=== PATIENT | female | born 1965 | race Caucasian/White ===

== ENCOUNTER 2019-08-06 14:17 | Inpatient (IN) | payer OTHER ==
[~2019-08-06] VITALS: Ht 165.1 cm; Wt 146.3 kg
[~2019-08-06 14:17] MED LIST: Acetaminophen PO; ENOX40DI2 SC; OXYC-481 PO; OXYC15TA PO; ZOLP5TAB PO
[2019-08-06] MEDS ORDERED: KETOROLAC 15 MG INJ IV STA (16:39)
[2019-08-06] MEDS ORDERED: LIDOCAINE 1% (MPF) 30 ML INJ INJ ONE (17:30)
[2019-08-06] MEDS ORDERED: BUPIVACAINE 0.5% (MPF) 10 ML VIAL INJ ONE (17:30)
[2019-08-06] MEDS ORDERED: HYDROmorphONE 2 MG/ML SYG IV STA (18:57)
[2019-08-06] MEDS ORDERED: ONDANSETRON 4 MG INJ IV PRN ×2 (19:30→23:00)
[2019-08-06] MEDS ORDERED: ACETAMINOPHEN 325 MG TAB PO PRN (19:30)
[2019-08-06 21:59] VITALS: BP 136/76; PULSE 80; RESP 20
[2019-08-06] MEDS ORDERED: ZOLPIDEM 5 MG TAB PO PRN (23:00)
[2019-08-06 23:51] VITALS: Ht 165.1 cm; Wt 146.3 kg
[2019-08-07] MEDS: morphine 4 MG/ML VIAL IV PRN ×2 (00:08→05:36)
[2019-08-07] MEDS: DEXTROSE 5%-0.45% NACL 1,000 ML IV SCH ×3 (00:15→21:34)
[2019-08-07 02:01] VITALS: BP 130/74; PULSE 97; RESP 20
[2019-08-07 08:29] VITALS: BP 186/85; PULSE 100; RESP 20
[2019-08-07] MEDS ORDERED: oxyCODONE 5 MG TAB PO PRN ×2 (08:30)
[2019-08-07] MEDS ORDERED: oxyCODONE 15 MG TAB PO PRN (08:30)
[2019-08-07] MEDS: HYDROmorphONE 1 MG/ML SYG IV PRN ×3 (08:46→23:46)
[2019-08-07] MEDS: ACETAMINOPHEN 500 MG TAB PO SCH ×3 (08:46→21:33)
[2019-08-07 09:15] VITALS: BP 149/68
[2019-08-07 15:02] VITALS: BP 139/81; PULSE 98; RESP 20
[2019-08-07 20:00] VITALS: BP 165/88; PULSE 92; RESP 18
[2019-08-07] MEDS ORDERED: ENOXAPARIN 40 MG/0.4 ML SYG SC ONE (20:30)
[2019-08-08] VITALS (38 sets, daily range): BP systolic 120–179; BP diastolic 52–95; PULSE 68–98; RESP 10–20
[2019-08-08] MEDS: DEXTROSE 5%-0.45% NACL 1,000 ML IV SCH ×2 (05:00→05:42)
[2019-08-08] MEDS: HYDROmorphONE 1 MG/ML SYG IV PRN ×2 (05:37→10:25)
[2019-08-08] MEDS: ACETAMINOPHEN 500 MG TAB PO SCH ×3 (08:36→22:15)
[2019-08-08] MEDS ORDERED: MIDAZOLAM 1 MG/ML 2 ML INJ ONE (14:27)
[2019-08-08] MEDS ORDERED: ROPIVACAINE 0.5 % 30 ML VIAL ONE (14:27)
[2019-08-08] MEDS ORDERED: LIDOCAINE 2% (SDV) 5 ML INJ ONE (15:07)
[2019-08-08] MEDS ORDERED: SUCCINYLCHOLINE CHLORIDE 100 MG/5 ML SYG IV ONE (15:07)
[2019-08-08] MEDS ORDERED: PROPOFOL 40 ML ONE (15:07)
[2019-08-08] MEDS ORDERED: CEFAZOLIN 1 GM INJ ONE (15:39)
[2019-08-08] MEDS ORDERED: ROCURONIUM 50 MG INJ ONE ×2 (15:50)
[2019-08-08] MEDS ORDERED: FAMOTIDINE 20 MG INJ ONE (15:51)
[2019-08-08] MEDS ORDERED: ONDANSETRON 4 MG INJ ONE (15:51)
[2019-08-08] MEDS ORDERED: DEXAMETHASONE 4 MG/ML 5 ML INJ ONE (15:51)
[2019-08-08] MEDS ORDERED: LABETALOL HCL 20MG INJ ONE (15:57)
[2019-08-08] MEDS ORDERED: POLYMYXIN/BACITRACIN 1L IRRIG ONE ×2 (16:25→18:18)
[2019-08-08] MEDS ORDERED: hydrALAzine 20 MG INJ ONE ×2 (16:56→19:45)
[2019-08-08] MEDS ORDERED: HYDROmorphONE 2 MG/ML SYG ONE (18:03)
[2019-08-08] MEDS ORDERED: DIPHENHYDRAMINE 50 MG INJ IV PRN (19:30)
[2019-08-08] MEDS ORDERED: FENTAnyl 50 MCG/ML VIAL IV PRN (19:30)
[2019-08-08] MEDS ORDERED: hydrALAzine 20 MG INJ IV PRN (19:30)
[2019-08-08] MEDS ORDERED: HYDROmorphONE 1 MG/5 ML IV SYRINGE IV PRN ×2 (19:30)
[2019-08-08] MEDS ORDERED: MEPERIDINE 25 MG INJ IV PRN (19:30)
[2019-08-08] MEDS ORDERED: ONDANSETRON 4 MG INJ IV PRN (19:30)
[2019-08-08] MEDS ORDERED: LABETALOL HCL 20MG INJ IV PRN (19:30)
[2019-08-08] MEDS ORDERED: SUGAMMADEX SODIUM 200 MG/2 ML VIAL IV ONE (19:42)
[2019-08-08] MEDS: FENTAnyl 50 MCG/ML VIAL IV PRN ×3 (21:52→23:02)
[2019-08-08] MEDS: HYDROmorphONE 1 MG/5 ML IV SYRINGE IV PRN ×3 (21:52→23:01)
[2019-08-09] VITALS: BP 140/59; PULSE 89; RESP 19
[2019-08-09] MEDS: DEXTROSE 5%-0.45% NACL 1,000 ML IV SCH ×2 (01:00→06:52)
[2019-08-09] MEDS: HYDROmorphONE 1 MG/ML SYG IV PRN ×3 (01:14→10:14)
[2019-08-09] MEDS ORDERED: ENOXAPARIN 40 MG/0.4 ML SYG SC SCH (09:00)
[2019-08-09 09:09] VITALS: BP 144/65; PULSE 82; RESP 20
[2019-08-09] MEDS: ACETAMINOPHEN 500 MG TAB PO SCH (10:13)
[2019-08-09 13:49] VITALS: BP 115/58; PULSE 89; RESP 18
== END 2019-08-09 18:00 | DRG 493 ==
LOC: E/R 14:17 → MS1 19:20 → CANRESERV 20:22 → MS1 22:54
PROVIDERS: ADMIT Internal Medicine; ATTEND Internal Medicine
PROC: 0QSG04Z Reposition Right Tibia with Internal Fixation Device, Open Approach (ICD-10-PCS; 2019-08-08)
PROC: 0QSJ04Z Reposition Right Fibula with Internal Fixation Device, Open Approach (ICD-10-PCS; principal; 2019-08-08 15:00)
DX: S82.854A Nondisplaced trimalleolar fracture of right lower leg, initial encounter for closed fracture (principal); Z68.43 Body mass index [BMI] 50.0-59.9, adult; W01.0XXA Fall on same level from slipping, tripping and stumbling without subsequent striking against object, initial encounter; E66.01 Morbid (severe) obesity due to excess calories
CPT/HCPCS: 36415; 71045; 73590; 80048; 84703; 85025; 85610; 85730; 86850; 86900; 86901; 87086; 93005; 96374; 96375; 97161; C1713; J0360; J0690; J1100; J1170; J1650; J1885; J2250; J2270; J2405; J2795; J3010; J7042